=== PATIENT | male | born 1975 | race Caucasian/White ===

== ENCOUNTER 2020-01-30 12:22 | Emergency (ER) | payer BC ==
[2020-01-30 12:36] VITALS: BP 146/94; PULSE 85; RESP 18; TEMP 98.2
--- NOTE | 2020-01-30 12:50 | ED ---
General Adult HPI - General Chief complaint: Extremity Injury, Upper Stated complaint: Shoulder pain Time Seen by Provider: 01/30/20 12:38 Source: patient, RN notes reviewed Mode of arrival: ambulatory Limitations: no limitations - History of Present Illness Initial comments: Patient is a pleasant 44-year-old male presenting to the emergency Department with complaints of right shoulder discomfort. Onset of symptoms was yesterday with moving water heater. Patient does have history of shoulder injury years ago with playing sports. Patient was told he had a third-degree ac separation. Patient states overall he has had only mild shoulder problems before yesterday. Patient does have discomfort of the right shoulder. Patient states there is paresthesias and radiating pain down the right arm. No neck pain. No back pain. No weakness. - Related Data Previous Rx's Medication Instructions Recorded Ibuprofen [Motrin] 600 mg PO Q6HR PRN #20 tab 01/30/20 Allergies Allergy/AdvReac Type Severity Reaction Status Date / Time No Known Allergies Allergy Verified 01/30/20 12:32 Review of Systems ROS Statement: Those systems with pertinent positive or pertinent negative responses have been documented in the HPI. ROS Other: All systems not noted in ROS Statement are negative. Constitutional: Denies: fever Eyes: Denies: eye pain ENT: Denies: ear pain Respiratory: Denies: cough Cardiovascular: Denies: chest pain Endocrine: Denies: fatigue Gastrointestinal: Denies: abdominal pain Genitourinary: Denies: dysuria Musculoskeletal: Reports: as per HPI, arthralgia. Denies: back pain Skin: Denies: rash Neurological: Denies: weakness Past Medical History Past Medical History: Diabetes Mellitus, Hypertension History of Any Multi-Drug Resistant Organisms: None Reported Past Surgical History: Back Surgery, Hernia Repair Additional Past Surgical History / Comment(s): laminectomy, L pinky amputation Past Psychological History: No Psychological Hx Reported Smoking Status: Former smoker Past Alcohol Use History: None Reported Past Drug Use History: Marijuana General Exam Limitations: no limitations General appearance: alert, in no apparent distress Head exam: Present: normocephalic Eye exam: Present: normal appearance Neck exam: Present: normal inspection, full ROM. Absent: tenderness, meningismus Respiratory exam: Present: normal lung sounds bilaterally Cardiovascular Exam: Present: regular rate, normal rhythm Expanded Peripheral pulses: 2+: Radial (R) GI/Abdominal exam: Present: soft. Absent: tenderness Extremities exam: Present: normal inspection, full ROM. Absent: tenderness Back exam: Present: normal inspection Neurological exam: Present: alert. Absent: motor sensory deficit Expanded Sensory exam: Upper Extremity Light Touch: Normal Motor strength exam: RUE: 5 Psychiatric exam: Present: normal affect, normal mood Skin exam: Present: normal color Course Vital Signs 01/30/20 12:32 Temperature 98.2 F Pulse Rate 85 Respiratory 18 Rate Blood Pressure 146/94 O2 Sat by Pulse 98 Oximetry Medical Decision Making - Medical Decision Making Patient reevaluated and updated - Radiology Data Radiology results: image reviewed (Right shoulder x-ray shows previous injury at the acromioclavicular joint.) Disposition Clinical Impression: Shoulder injury Disposition: HOME SELF-CARE Condition: Stable Instructions (If sedation given, give patient instructions): Shoulder Sprain (ED) Additional Instructions: Prescription for Motrin 600 sent to your pharmacy. Please follow-up with orthopedics in the next couple of days for recheck, number provided. Ice to affected area. Return for weakness, loss of sensation, worsening or change in symptoms or other concerns. Prescriptions: Ibuprofen [Motrin] 600 mg PO Q6HR PRN #20 tab PRN Reason: Pain Is patient prescribed a controlled substance at d/c from ED?: No Referrals: Geraldine Matos DO [Primary Care Provider] - 1-2 days Ike Perrin DO [Doctor of Osteopathic Medicine] - 1-2 days Time of Disposition: 13:28
--- NOTE | 2020-01-30 13:21 | XR ---
EXAMINATION TYPE: XR shoulder complete RT DATE OF EXAM: 01/30/2020 CLINICAL HISTORY: Right shoulder pain after heavy lifting. History of old acromioclavicular injury. TECHNIQUE: Three views of the right shoulder are obtained. COMPARISON: None. FINDINGS: There is no acute fracture/dislocation evident in the right glenohumeral joint. There is w ell-opacified elevation and fragmentation of the distal clavicle at the acromioclavicular joint. The visualized ribs are intact and unremarkable. IMPRESSION: 1. No acute fracture or dislocation of the glenohumeral shoulder joint. 2. Well ossified elevation and fragmentation of the distal clavicle consistent with history of old ac romioclavicular injury.
[2020-01-30] MEDS ORDERED: ACET/COD 300 MG/30 MG STARTER PACK 6 TAB BTL PO STA (13:26)
[2020-01-30] MEDS ORDERED: KETOROLAC 60 MG/2 ML VIAL IM STA (13:26)
== END 2020-01-30 13:49 | disposition home or self-care (01) ==
LOC: EC 12:22
DX: S49.91XA Unspecified injury of right shoulder and upper arm, initial encounter (principal); Z89.022 Acquired absence of left finger(s); Z87.891 Personal history of nicotine dependence; X50.0XXA Overexertion from strenuous movement or load, initial encounter
CPT/HCPCS: 73030; 99283; 96372; J1885

== ENCOUNTER → 2020-04-03 | Outpatient (CLI) | payer BC ==
[2020-04-03 08:50] VITALS: BP 178/112; PULSE 80; RESP 20; TEMP 97.8
--- NOTE | 2020-04-03 09:21 | P.CONS ---
History of Present Illness - Reason for Consult Consult date: 04/03/20 - Chief Complaint Neck and right arm pain - History of Present Illness This is a 45-year-old gentleman with history of neck pain with radiation to the right arm down to the right hand with numbness and tingling all the way down to his right hand and all his fingers. The patient has been having this pain for a few months now with no precipitating events. He describes his pain as a throbbing and aching in quality. The pain wakes him up at night but he denies any bowel or bladder dysfunction or any weight loss recently. This pain and numbness are precipitated by extension of the neck. The patient was seen by Dr. Busch wanted to have injections done on the cervical spine before trying physical therapy. The patient would like to avoid having surgery of the cervical spine if possible. He describes dropping things from his right hand occasionally. Review of Systems Constitutional: Denies chills, Denies fever Ears, nose, mouth and throat: Denies headache, Denies sore throat Cardiovascular: Denies chest pain, Denies shortness of breath Respiratory: Denies cough Neurological: Reports numbness Psychiatric: Denies anxiety, Denies depression Endocrine: Reports high blood sugars Past Medical History Past Medical History: Diabetes Mellitus, Hyperlipidemia, Hypertension, Musculoskeletal Disorder Additional Past Medical History / Comment(s): type 2 diabetic,right arm goes numb, hard to put head back History of Any Multi-Drug Resistant Organisms: None Reported Past Surgical History: Back Surgery, Hernia Repair Additional Past Surgical History / Comment(s): laminectomy, L pinky amputation Past Anesthesia/Blood Transfusion Reactions: No Reported Reaction Past Psychological History: No Psychological Hx Reported Smoking Status: Former smoker Past Alcohol Use History: Occasional Additional Past Alcohol Use History / Comment(s): quit smoking 2007, smoked 20 yrs. 1pack every 2 days Past Drug Use History: Marijuana Additional Drug Use History / Comment(s): daily use Medications and Allergies Home Medications Medication Instructions Recorded Confirmed Type Ibuprofen [Motrin] 600 mg PO Q6HR PRN #20 tab 01/30/20 Rx Semaglutide [Ozempic] 0.5 mg SQ Q7DAYS 04/03/20 04/03/20 History Allergies Allergy/AdvReac Type Severity Reaction Status Date / Time No Known Allergies Allergy Verified 03/28/20 17:44 Physical Exam Vitals: Vital Signs Temp Pulse Resp BP Pulse Ox 04/03/20 08:40 97.8 F 80 20 178/112 96 - Constitutional General appearance: average body habitus - EENT Eyes: EOMI - Respiratory Respiratory: bilateral: CTA - Cardiovascular Rhythm: regular - Integumentary Integumentary: no calor, no cellulitis, no cyanotic, no decreased turgor, no flushed, no jaundiced, no normal, no normal turgor, no pale, no rash, no ulcer - Neurologic Neuro exam of the upper extremities showed normal and symmetrical muscle strength bilaterally, absent right biceps reflex but the rest of the tendon reflexes are normal bilaterally. Decreased range of motion of the cervical spine mostly for cervical extension which elicited pain in the neck and arm and numbness in the right arm. No tenderness in the paracervical or trapezius muscles on the right side. Neurologic: CNII-XII intact - Musculoskeletal Musculoskeletal: gait normal - Psychiatric Psychiatric: A&O x's 3, appropriate affect, intact judgment & insight Results Results: MRI of the cervical spine showed neural foraminal stenosis at multiple levels Assessment and Plan Plan: This is a 45-year-old gentleman with what seems to be right cervical radiculopathy due to neural foraminal stenosis in the cervical spine. The patient may benefit from getting cervical epidural steroid injection at the C7-T1 level on the right paramedian approach under fluoroscopic guidance. The procedure was explained to the patient and his questions were answered. I asked the patient to hold his ibuprofen for 24 hours before the procedure. If this fails to improve his symptoms then he would try physical therapy. I thank Dr. Busch for the referral
== END | disposition home or self-care (01) ==
LOC: PNWHC3 08:27
PROVIDERS: ATTEND Anesthesiology
DX: M48.02 Spinal stenosis, cervical region (principal); M54.12 Radiculopathy, cervical region; F12.90 Cannabis use, unspecified, uncomplicated; F10.99 Alcohol use, unspecified with unspecified alcohol-induced disorder; Z79.1 Long term (current) use of non-steroidal anti-inflammatories (NSAID); Z79.84 Long term (current) use of oral hypoglycemic drugs; Z87.891 Personal history of nicotine dependence
CPT/HCPCS: 99211

== ENCOUNTER → 2020-05-02 | Day surgery (SDC) | payer BC ==
[2020-05-01 11:35] VITALS: BMI 25.8
[~2020-05-02] MED LIST: DEXAMETHASONE SOD PHOSPHATE 10 MG/ML 1 ML VIAL ONE; ENALAPRILAT 1.25 MG/ML 1 ML VIAL IVP ONE; ENALAPRILAT 1.25 MG/ML 1 ML VIAL ONE; IOPAMIDOL M200 10 ML VIAL ONE; IV FLUID CONTINUATION 1,000 ML IV ONE; LACTATED RINGERS 1,000 ML IV SCH; LIDOCAINE 1% (10MG/ML) FOR IV START INTRADERMA ONE; MIDAZOLAM 2 MG/2 ML VIAL ONE; SODIUM CHLORIDE 0.9% (PF) 10 ML VIAL ONE; fentaNYL (PF) 50 MCG/ML 2 ML AMP ONE
[2020-05-02 06:53] VITALS: RESP 16; TEMP 97.9
[2020-05-02 07:12] LABS: Glucose,Whole Blood 126 mg/dL (75-99)
--- NOTE | 2020-05-02 07:43 | P.PCN ---
Date of Procedure: 05/02/20 Procedure(s) Performed: . PROCEDURE 1. Cervical epidural steroid injection under fluoroscopic guidance, C7-T1 (fluoroscopy images available in the radiology department ) 2. Cervical epidurogram. PREOPERATIVE DIAGNOSIS: 1- Cervical foraminal stenosis 2- Cervical radiculopathy. POSTOPERATIVE DIAGNOSIS: : 1- Cervical foraminal stenosis . 2- Cervical radiculopathy. ANESTHESIA: Local anesthesia with lidocaine 1 % , and moderate sedation, with Versed 2 mg and Fentanyl 100 mcg. EBL 0 PROCEDURE INDICATION: The patient with neck pain and radiculitis unresponsive to conservative treatment consents for procedure. PROCEDURE DESCRIPTION / TECHNIQUE: The patient was seen and identified in the preoperative area. Risks, benefits, complications, including but not limited to infections ,bleeding , allergic reactions to the medications ,and not complete pain releife, and alternatives were discussed with the patient, the patient agreed to proceed with the procedure and signed the consent. Patient was taken to the OR and time out was completed. The patient was placed in the prone position on the procedure table. A pillow was placed under the patients chest to increase the cervical interlaminar space. The cervical area was prepped and draped in the usual sterile fashion. Vital signs were closely monitored during the procedure. Conscious sedation was used during the procedure to decrease patients anxiety. Using anterior-posterior fluoroscopy, the C7-T1 interlaminar space was i dentified and the skin over this site was marked and then infiltrated with 1% lidocaine subcutaneously. Subsequently, a 20-gauge 3-1/2-inch Tuohy epidural needle was inserted and advanced toward the epidural space by means of the ``hanging-drop technique and guided by AP and lateral fluoroscopy. The correct needle position in the epidural space was verified with the injection of 2 mL of the water soluble contrast dye Isovue-200 and observing an excellent epidurogram with the epidural spread of the dye, after negative aspiration for blood and CSF and in the absence of paresthesias. Again after negative aspiration, mixture containing 20 mg Dexamethasone and 2 ml of preservative- free normal saline injected and a washout of epidurogram was seen. Needle was withdrawn intact, skin was cleansed, and bandages were applied. Complications= none. Disposition= patient was placed in supine position and transferred to the recovery room area in stable condition and there was no evidence of upper or lower extremity motor or sensory deficit after the procedure patient was discharged from recovery room after discharge criteria met and home discharge instructions was given by the staff and patient will follow with the pain clinic in 2-4 weeks
[2020-05-02 07:55] LABS: Glucose,Whole Blood 128 mg/dL (75-99)
--- NOTE | 2020-05-02 08:32 | FL ---
Fluoroscopy History: CERV EPID STER INJ DR. YEAGER CERV EPID STER FL TIME 0.03 MINS
[2020-05-02 08:54] VITALS: BP 153/92; PULSE 59
== END ==
LOC: ORPAIN 06:29
PROVIDERS: ATTEND Specialist
DX: M48.02 Spinal stenosis, cervical region (principal); M54.12 Radiculopathy, cervical region
CPT/HCPCS: 62321; J2250; J1100; J3010; Q9966; 99152

== ENCOUNTER 2020-05-25 12:27 | Day surgery (SDC) | payer BC ==
[2020-05-23 14:06] VITALS: BMI 26.6
[2020-05-25 12:45] VITALS: TEMP 97.6
[2020-05-25] MEDS ORDERED: LACTATED RINGERS 1,000 ML IV ONE (12:45)
[2020-05-25] MEDS ORDERED: DEXAMETHASONE SOD PHOSPHATE 10 MG/ML 1 ML VIAL ONE (12:46)
[2020-05-25] MEDS ORDERED: fentaNYL (PF) 50 MCG/ML 2 ML AMP ONE (12:46)
[2020-05-25] MEDS ORDERED: MIDAZOLAM 2 MG/2 ML VIAL ONE (12:46)
[2020-05-25] MEDS ORDERED: IOPAMIDOL M200 10 ML VIAL ONE (12:46)
--- NOTE | 2020-05-25 13:03 | P.PCN ---
Date of Procedure: 05/25/20 Description of Procedure: Diagnosis: Cervical radiculopathy Cervical degenerative disc disease POSTOPERATIVE DIAGNOSIS: Diagnoses: Cervical radiculopathy Cervical degenerative disc disease PROCEDURE Cervical Epidural steroid injection under fluoroscopic guidance at the C7-T1 interspace using right paramedian approach Cervical epidurogram ANESTHESIA: Local with 1% lidocaine 3 ml and IV sedation with Versed and fentanyl, sedation time 13 min Fluoroscopy was used for the procedure and images were saved in the radiology portion of the chart. EBL: Minimal PROCEDURE INDICATION: The patient presents with cervical radicular symptoms unresponsive to conservative treatment. This is the second cervical epidural steroid injection. PROCEDURE DESCRIPTION / TECHNIQUE: The patient was seen and identified in the preoperative area. Risks, benefits, complications including but not limited to infections ,bleeding ,allergic reaction to the medications ,nerve damage and incomplete pain relief, and alternatives were discussed with the patient. The patient agreed to proceed with the procedure and signed the consent. IV was started, and vital signs were stable. Patient was taken to the OR and time out was completed. The patient was placed in the prone position on procedure table and a pillow was placed under the chest area. The cervical area was prepped and draped in the usual sterile fashion. Conscious sedation was used during the procedure to decrease patients anxiety. Vital signs was monitored during the entire procedure. Using anterior-posterior fluoroscopy, the C7-T1 interlaminar space was identified and the skin over this site was marked and then infiltrated with 1% lidocaine subcutaneously. Subsequently, a 20-gauge Tuohy epidural needle was inserted and advanced toward the epidural space using the loss of resistance technique and guided by AP and 50 oblique fluoroscopy. The correct needle position in the epidural space was verified. After negative aspiration for blood and CSF and in the absence of paresthesias, Isovue 200 2 mL's was injected under live fluoroscopy with good epidural spread. After negative aspiration, a 4 ml mixture containing 10 mg of dexamethasone, 3 mL of preservative free normal saline was injected. Needle was withdrawn intact, skin was cleansed, and bandages were applied. COMPLICATIONS: None DISPOSITION / PLANS: The patient was placed in a supine position and transferred to the recovery area in a stable condition for observation. There was no evidence of lower extremity motor or sensory deficit after the procedure. Patient was discharged from the recovery room after meeting discharge criteria. Home discharge instructions were given to the patient by the staff. The patient will be scheduled a [follow up/repeat procedure] in the clinic in 2-4 weeks.
[2020-05-25 13:04] LABS: Glucose,Whole Blood 124 mg/dL (75-99)
[2020-05-25] MEDS ORDERED: IV FLUID CONTINUATION 1,000 ML IV ONE (13:08)
[2020-05-25 13:31] VITALS: BP 132/84; PULSE 65; RESP 16
--- NOTE | 2020-05-25 13:33 | FL ---
Fluoroscopy HISTORY: Pain 10 seconds fluoroscopy time supplied to the referring clinician. 2 intraoperative C-arm images docum ent the procedure. See dictated report from anesthesia.
== END 2020-05-25 13:39 | disposition home or self-care (01) ==
LOC: ORPAIN 12:27
PROVIDERS: ATTEND Anesthesiology
DX: M50.10 Cervical disc disorder with radiculopathy, unspecified cervical region (principal); E11.9 Type 2 diabetes mellitus without complications
CPT/HCPCS: 62321; J2250; J1100; J3010; Q9966; 99152